=== PATIENT | female | born 1955 | race Caucasian/White ===

== ENCOUNTER 2017-10-24 16:54 | Emergency (ER) | payer SELFPAY ==
[2017-10-24] MEDS ORDERED: Ketorolac Tromethamine 60 MG/2 ML VIAL ONE (18:33)
--- NOTE | 2017-10-24 20:55 | RAD ---
LEFT WRIST THREE VIEW 10/24/17 HISTORY: Fall. COMPARISON: None. FINDINGS: No acute fracture or malalignment. IMPRESSION: No acute fracture or malalignment. POS: [facility]
--- NOTE | 2017-10-24 20:59 | RAD ---
RIGHT WRIST THREE VIEW 10/24/17 HISTORY: Trip and fall at home. COMPARISON: None. FINDINGS: No acute fracture or malalignment. Severe degenerative change of the thumb carpometacarpal joint. IMPRESSION: 1. No acute fracture or malalignment. 2. Severe degenerative change of the thumb carpometacarpal joint. 3. The scapholunate interval is upper limits of normal. MRI may be helpful. POS: [facility]
--- NOTE | 2017-10-24 21:01 | RAD ---
LEFT FOREARM TWO VIEW 10/24/17 HISTORY: Fall. Pain. COMPARISON: None. FINDINGS: There appears to be a large elbow joint effusion. Possibility of a nondisplaced radial neck fracture is present. IMPRESSION: Concern for a possible radial neck fracture with large joint effusion. Elbow radiographs are recommen ded. POS: [facility]
--- NOTE | 2017-10-24 22:44 | RAD ---
LEFT ELBOW FOUR VIEW 10/24/17 HISTORY: Evaluate for radial neck fracture. COMPARISON: Radiograph same day. FINDINGS: A large joint effusion. There is suggestion of a nondisplaced radial neck fracture. IMPRESSION: Large joint effusion with suggestion of a nondisplaced radial neck fracture. POS: [facility]
== END 2017-10-24 23:00 | disposition home or self-care (01) ==
LOC: ERS 16:54
DX: S52.135A Nondisplaced fracture of neck of left radius, initial encounter for closed fracture (principal); S80.12XA Contusion of left lower leg, initial encounter; K21.9 Gastro-esophageal reflux disease without esophagitis; E78.5 Hyperlipidemia, unspecified; F41.9 Anxiety disorder, unspecified; F32.9 Major depressive disorder, single episode, unspecified; Z87.891 Personal history of nicotine dependence; W01.0XXA Fall on same level from slipping, tripping and stumbling without subsequent striking against object, initial encounter; Y92.009 Unspecified place in unspecified non-institutional (private) residence as the place of occurrence of the external cause
CPT/HCPCS: 96372; J1885

== ENCOUNTER 2020-09-17 17:53 | Emergency (ER) | payer MEDICARE, SELFPAY ==
[~2020-09-17 17:53] MED LIST: Iopamidol-370 76% 500 ML 1 ML ONE
[2020-09-17 18:33] LABS: #Basophils 0.1 thou/uL (0.0-0.2); #Monocytes 1.2 thou/uL (0.11-0.59); #Neutrophils 10.3 thou/uL (1.40-6.50); %Basophils 0.6 % (0.0-1.0); %Eosinophils 0.4 % (0.0-10.0); %Lymphocytes 14.8 % (21.0-51.0); %Monocytes 8.5 % (0.0-10.0); %Neutrophils 75.7 % (42.0-75.0); Hemoglobin 14.3 g/dL (12.0-16.0); Mean Corpuscular HGB CONC 33.2 g/dL (32.0-36.0); Mean Corpuscular Volume 90.2 fL (78.0-98.0); Mean Platelet Volume 9.3 fL (7.4-10.4); Platelet Count 213 thou/uL (130-400); RBC Distribution Width 12.8 % (11.5-14.5); Red Blood Cell (RBC) Count 4.75 mill/uL (4.20-5.40); White Blood Cell (WBC) Count 13.6 thou/uL (4.8-10.8)
[2020-09-17 18:54] LABS: ALT (SGPT) 8 U/L (8-55); AST (SGOT) 14 U/L (5-34); Albumin 3.8 g/dL (3.4-4.8); Alkaline Phosphatase 87 U/L (40-110); Anion Gap 12 mmol/L (10-20); BUN (Urea Nitrogen) 22 mg/dL (9.8-20.1); Bilirubin, Total 0.5 mg/dL (0.2-1.2); Calc. Creatinine Clearance 0 mL/min (70-130); Calcium 8.7 mg/dL (7.8-10.44); Carbon Dioxide 22 mmol/L (23-31); Chloride 107 mmol/L (98-107); Estimated GFR-MDRD 70; Globulin 3.1 g/dL (2.4-3.5); Glucose 105 mg/dL (80-115); Lipase 22 U/L (8-78); Potassium 3.8 mmol/L (3.5-5.1); Protein, Total 6.9 g/dL (6.0-8.3); Sodium 137 mmol/L (136-145)
--- NOTE | 2020-09-17 19:20 | CT ---
CT OF THE ABDOMEN AND PELVIS WITH IV CONTRAST INDICATION: Left lower quadrant abdominal pain COMPARISON: Prior CT the abdomen and pelvis dated June 13, 2013. FINDINGS: ABDOMEN: Lung bases: Mild bibasilar atelectasis. Moderate size hiatal hernia Liver: No focal lesion. Gallbladder: Normal appearing. Pancreas: Normal. Adrenal glands: Normal. Spleen: Normal. Kidneys and ureters: Normal. No hydronephrosis. Vasculature: There are moderate vascular calcifications seen involving the visualized vasculature. Th ere is a circumaortic left renal vein Lymph nodes:No lymphadenopathy. Free fluid in abdomen:No free fluid is evident. PELVIS: Small and large bowel: There is wall thickening and pericolonic inflammatory stranding involving the proximal sigmoid colon with scattered colonic diverticula. No drainable fluid collection is evident. Small bowel is of normal caliber. Appendix:Not definitely seen Bladder: Normal. Rectal and perirectal soft tissues:Normal. Reproductive structures: Normal. Free fluid in pelvis: Mild free fluid in the pelvis Lymphadenopathy pelvis: No lymphadenopathy is evident. Osseous structures: No acute osseous abnormality. No destructive osteolytic or osteoblastic lesion i s identified. There is scattered degenerative and osteoarthritic changes. Soft tissues:Normal. IMPRESSION: 1. Findings most consistent with noncomplicated sigmoid diverticulitis. 2. Moderate size hiatal hernia.
[2020-09-17 20:15] LABS: Bacteria/HPF None Seen HPF (None Seen); Bilirubin Negative (Negative); Blood, Urine Trace (Negative); Clarity Clear (Clear); Glucose, Urine (Dipstick) Normal (Negative); Ketone, Urine Negative (Negative); Leukocyte Negative Leu/uL (Negative); Nitrite Negative (Negative); Protein, Urine (Dipstick) 20 mg/dL (Neg-Trace); Urobilinogen Normal mg/dL (Less than 2); WBC/HPF 0-3 HPF (0-3)
[2020-09-17 20:25] LABS: Specific Gravity, Urine Greater than 1.060 (1.002-1.036)
== END 2020-09-17 20:21 | disposition home or self-care (01) ==
LOC: ERS 17:53
DX: K57.32 Diverticulitis of large intestine without perforation or abscess without bleeding (principal); K21.9 Gastro-esophageal reflux disease without esophagitis; E78.5 Hyperlipidemia, unspecified; E78.00 Pure hypercholesterolemia, unspecified; M19.90 Unspecified osteoarthritis, unspecified site; F41.9 Anxiety disorder, unspecified; F32.9 Major depressive disorder, single episode, unspecified; Z79.899 Other long term (current) drug therapy
CPT/HCPCS: 36415; 74177; 80053; 81003; 81015; 83690; 85025; Q9967

== ENCOUNTER 2021-03-31 10:47 | Outpatient (CLI) | payer MEDICARE | END 2021-03-31 10:48 | disposition home or self-care (01) | LOC: BICRAD 10:47 | PROVIDERS: ATTEND Family Medicine | DX: M79.642 Pain in left hand (principal); M79.641 Pain in right hand; M18.12 Unilateral primary osteoarthritis of first carpometacarpal joint, left hand; M19.041 Primary osteoarthritis, right hand ==

== ENCOUNTER 2021-05-20 17:48 | Emergency (ER) | payer MEDICARE ==
[2021-05-20] MEDS ORDERED: Ketorolac Tromethamine 30 MG/ML VIAL ONE (19:00)
== END 2021-05-20 19:38 | disposition home or self-care (01) ==
LOC: ERS 17:48
DX: S70.11XA Contusion of right thigh, initial encounter (principal); K21.9 Gastro-esophageal reflux disease without esophagitis; E78.5 Hyperlipidemia, unspecified; E78.00 Pure hypercholesterolemia, unspecified; M19.90 Unspecified osteoarthritis, unspecified site; W18.30XA Fall on same level, unspecified, initial encounter
CPT/HCPCS: 72170; 96372; J1885

== ENCOUNTER 2021-05-29 12:19 | Emergency (ER) | payer MEDICARE ==
[2021-05-29] MEDS ORDERED: Famotidine 20 MG TAB ONE (12:43)
[2021-05-29] MEDS ORDERED: diphenhydrAMINE 25 MG CAP ONE (12:43)
[2021-05-29] MEDS ORDERED: predniSONE 20 MG TAB ONE (12:43)
== END 2021-05-29 12:58 | disposition home or self-care (01) ==
LOC: ERS 12:19
DX: T78.40XA Allergy, unspecified, initial encounter (principal); K21.9 Gastro-esophageal reflux disease without esophagitis; E78.5 Hyperlipidemia, unspecified; E78.00 Pure hypercholesterolemia, unspecified; M19.90 Unspecified osteoarthritis, unspecified site; Z79.899 Other long term (current) drug therapy
CPT/HCPCS: 99283; J7512; Q0163

== ENCOUNTER 2021-12-20 14:51 | Outpatient (CLI) | payer MEDICARE | END 2021-12-20 14:52 | disposition home or self-care (01) | LOC: BICMAMMO 14:51 | PROVIDERS: ATTEND Family Medicine | DX: Z13.820 Encounter for screening for osteoporosis (principal); Z78.0 Asymptomatic menopausal state | CPT/HCPCS: 77080 ==

== ENCOUNTER 2023-02-02 13:57 | Outpatient (CLI) | payer MEDICARE | END 2023-02-02 13:58 | disposition home or self-care (01) | LOC: BICMAMMO 13:57 | PROVIDERS: ATTEND Family Medicine | DX: Z12.31 Encounter for screening mammogram for malignant neoplasm of breast (principal); Z80.3 Family history of malignant neoplasm of breast | CPT/HCPCS: 77063; 77067 ==

== ENCOUNTER 2023-02-02 14:26 | Outpatient (CLI) | payer MEDICARE | END 2023-02-02 14:27 | disposition home or self-care (01) | LOC: BICRAD 14:26 | PROVIDERS: ATTEND Family Medicine | DX: M25.571 Pain in right ankle and joints of right foot (principal) ==

== ENCOUNTER 2023-07-27 10:59 | Outpatient (CLI) | payer MEDICARE | END 2023-07-27 11:00 | disposition home or self-care (01) | LOC: BICMRI 10:59 | PROVIDERS: ATTEND Registered Nurse | DX: M79.651 Pain in right thigh (principal) ==

== ENCOUNTER 2025-09-01 13:05 | Emergency (ER) | payer MEDICARE ==
[2025-09-01] MEDS ORDERED: Ketorolac Tromethamine 30 MG (1 mL) VIAL ONE (14:35)
[2025-09-01] MEDS ORDERED: Methocarbamol 500 MG TAB ONE (14:37)
== END 2025-09-01 15:00 | disposition home or self-care (01) ==
LOC: ERS 13:05
DX: M54.41 Lumbago with sciatica, right side (principal)
CPT/HCPCS: 96372; 99283; J1885